=== PATIENT | female | born 1960 | race Caucasian/White ===

== ENCOUNTER 2017-03-05 07:20 | Emergency (ER) | payer OTHER ==
[2017-03-05 07:24] VITALS: BMI 28.1
[2017-03-05] MEDS ORDERED: SOLU-Medrol 125 MG VIAL ONE (07:30)
[2017-03-05] MEDS ORDERED: BENADRYL INJ 50 MG VIAL ONE (07:30)
[2017-03-05] MEDS ORDERED: ADRENALINE CHL INJ ONE ×2 (07:31→07:33)
[2017-03-05] MEDS ORDERED: ADRENALINE CHL INJ SC ONE (07:40)
--- NOTE | 2017-03-05 07:41 | DR.GENAD ---
HPI - PCP Primary Care Physician: LETICIA BARBOSA - Complaint/Symptoms Chief Complaint Doctors Comments: Patient reports that this has happened in the past about three weeks. She was treated at the local clinic. She admits to taking an chace inhibitor for blood pressure control. She admits to minimal swelling of tongue. Chief Complaint:: PT C/O EDEMA TO UPPER AND LOWER LIP PT TOOK 2 BENADRYL PT DENIES ANY NEW MEDS AND DENIES SOB,, - Source History Provided: Patient - Timing Onset of Chief Complaint: 03/04/17 <CARMELO MARTI - Last Filed: 03/05/17 08:00> PMH - PMH Past Medical History: Yes Past Medical History: Hypertension, Hypothyroidism Past Surgical History: No - Family History History of Family Medical Conditions: No - Social History Does patient currently use any type of tobacco product: No Have you used tobacco products in the last 12 months: No Type of Tobacco Use: None Does any household member use tobacco: No Alcohol Use: None Do you use any recreational Drugs:: No Lives With: Family Lives Where: Home - infectious screening In the last 2 months have you had wt loss of >10#?: NO Have you had fever, night sweats or hemotysis?: No Have you traveled outside the country in the last 6 months?: No Isolation: Standard <CARMELO MARTI - Last Filed: 03/05/17 08:00> ROS - Review of Systems Eyes: No Symptoms Reported ENTM: No Symptoms Reported Respiratoy: No Symptoms Reported Cardiovascular: No Symptoms Reported Gastrointestinal/Abdominal: No Symptoms Reported Genitourinary: No Symptoms Reported Neurological: No Symptoms Reported Musculoskeletal: No Symptoms Reported Integumentary: No Symptoms Reported Hematologic/Lymphatic: No Symptoms Reported Endocrine: No Symptoms Reported Psychiatric: No Symptoms Reported All Other Systems: Reviewed and Negative <CARMELO MARTI - Last Filed: 03/05/17 08:00> PE - General Limitations: No Limitations General Appearance: Alert, In No Apparent Distress - Head Head Exam: Normal Inspection, Atraumatic - Eyes Eye exam: Normal Appearance, PERRL, EOMI - ENT ENT Exam: Other (tongue minimal edema, erythematous, uvula wnl) External Ear Exam: Normal External Inspection TM/Canal Exam: Bilateral Normal Nose Exam: Normal Nose Exam Mouth Exam: Tongue Swelling (minimal ). negative: Drooling, Trismus, Lip Swelling, Tongue Elevation Throat Exam: Normal Inspection. negative: Muffled Voice - Neck Neck Exam: Normal Inspection, Full ROM - Chest Chest Inspection: Normal Inspection - Respiratory Respiratory Exam: Normal Lung Sounds Bilat Respiratory Exam: Bilateral Clear to Auscultation - Cardiovascular Cardiovascular Exam: Regular Rate, Normal Rhythm - Abdominal Exam Abdominal Exam: Normal Inspection, Normal Bowel Sounds Abdominal Tenderness: negative: RUQ, RLQ, LUQ, LLQ, Epigastrium, Suprapubic, Diffuse, Mild, Moderate, Severe, Other - Extremities Extremities Exam: Normal Inspection, Full ROM - Back Back Exam: Normal Inspection, Full ROM - Neurologic Neurological Exam: Alert, Oriented X3, CN II-XII Intact - Psychiatric Psychiatric Exam: Normal Affect, Normal Mood - Skin Skin Exam: Warm, Dry, Intact <CARMELO MARTI - Last Filed: 03/05/17 08:00> - Vital Signs Vitals: Pulse Rate [Left Brachial] 86 Pulse Rate 89 Respiratory Rate 18 Blood Pressure [Left Arm] 149/70 Blood Pressure 170/92 O2 Sat by Pulse Oximetry 99 MDM - Differential Diagnosis Differential Diagnosis: angioedema, allergic reaction. <SHIVA GOULD - Last Filed: 03/06/17 08:30> Course - Treatment Treatment: patient feeling better in ed with meds - Education/Counseling Education/Counseling: Patient, Family, Education Educated On: Treatment, Diagnosis, Needs for Follow Up <SHIVA GOULD - Last Filed: 03/06/17 08:30> <CARMELO MARTI - Last Filed: 03/05/17 08:00> <SHIVA GOULD - Last Filed: 03/06/17 08:30> - Diagnosis Discharge Problem: CHACE inhibitor-aggravated angioedema Qualifiers: Encounter type: subsequent encounter Qualified Code(s): T78.3XXD - Angioneurotic edema, subsequent encounter - Discharge Plan Disposition: 01 HOME, SELF-CARE Condition: Stable Prescriptions: Clonidine HCl [CATAPRES 0.1 MG TAB *] 0.1 mg PO BID #60 tab Hydroxyzine Pamoate [Vistaril] 25 mg PO TID PRN #20 cap PRN Reason: Methylprednisolone Dosepak 4Mg [MEDROL DOSEPAK (4 mg tab x 21)] 1 shanice PO ONCE # 1 shanice - Follow ups/Referrals Follow ups/Referrals: DAGOBERTO KELLY [Primary Care Provider] - 2 days - Instructions Instructions: Angioedema, [id number], Allergies, [id number] Additional Instructions: RETURN TO ED IF WORSE.
[2017-03-05] MEDS ORDERED: SOLU-Medrol 125 MG VIAL IVP ONE ×2 (07:44)
[2017-03-05] MEDS ORDERED: ADRENALINE CHL INJ IVP ONE (07:44)
[2017-03-05] MEDS ORDERED: ZANTAC INJ 50 MG in NS 50 ML IV 50 ML IV ONE (07:44)
[2017-03-05] MEDS ORDERED: BENADRYL INJ 50 MG VIAL IVP ONE (07:44)
[2017-03-05] MEDS ORDERED: BENADRYL INJ 50 MG VIAL IV ONE (07:48)
[2017-03-05] MEDS ORDERED: PEPCID TAB 20 MG PO ONE (08:20)
[2017-03-05] MEDS ORDERED: PEPCID TAB 20 MG ONE (08:28)
[2017-03-05] MEDS ORDERED: CATAPRES TAB 0.1 MG PO ONE (09:44)
[2017-03-05] MEDS ORDERED: CATAPRES TAB 0.1 MG ONE (09:48)
[2017-03-05 10:05] VITALS: BP 149/70
== END 2017-03-05 10:06 | disposition home or self-care (01) ==
LOC: ER 07:33
DX: T78.3XXD Angioneurotic edema, subsequent encounter (principal)
CPT/HCPCS: 96365; 96372; 96374; 96375; 99282; 99283; A4222; J0170; J1200; J2930